=== PATIENT | female | born 1940 | race Caucasian/White ===

== ENCOUNTER 2024-11-01 14:28 | Emergency (ER) | payer MEDICARE, OTHER, SELFPAY ==
[2024-11-01 14:42] VITALS: BP 152/69
[2024-11-01 15:24] VITALS: BMI 24.6
--- NOTE | 2024-11-01 15:28 | ED.MUSCINJ ---
HPI-Injury
General
Chief Complaint: Fall
Source: patient
Exam Limitations: none
Time Seen by Provider: 11/01/24 15:22
History of Present Illness-Injury
Initial Injury comments:
84-year-old female not anticoagulated presents for evaluation of worsening mid to lower back pain after a fall she sustained 3 weeks ago. She bumped her head at the time but there was no loss of consciousness. She denies any headache. She is not
anticoagulated. She notes increased back pain. She has been using Tylenol which helps. She is using warm compresses. No numbness.
Phy Exam
Physical Exam
Physical Exam:
General: Well-appearing female no acute respiratory distress
Musculoskeletal exam: The cervical spine is nontender. She is mildly diffusely tender about the paraspinous area of the thoracic spine and lumbar spine as well as the right ribs
Heart: Regular rate and rhythm
Lungs: Clear no wheeze
Extremities: No cyanosis
Injury Course
Orders/Labs/Results
Orders:
Orders
11/01/24 14:48
CR Chest - 2 Views Urgent
Comment:
Reason For Exam: fall
CR Lumbar Spine Comp Min 4 Vw* Urgent
Comment:
Reason For Exam: faall
11/01/24 15:29
CR Ribs-right 2 Vw No Pa Chest Urgent
Reason For Exam: fall
CR Thoracic Spine 2 Views Urgent
Comment:
Reason For Exam: fall
11/01/24 18:23
Acetaminophen [Tylenol] 650 mg PO NOW STA
MDM/Problems Addressed
Differential Diagnosis Includes:
Fall with back and right rib pain. X-rays pending to evaluate for fracture or pneumothorax. Other items in differential could include contusion versus musculoskeletal strain
*Pulse Oximetry
SaO2: 96
Oxygen Mode of Delivery: Room air
Patient hypoxic: no
*Critical Care Note
Total Time (30-74mins, 75-104mins- exclusive of procedures): Not Applicable
Update Note
Update Note:
X-rays without acute fractures. Personally visualized and reviewed by radiology. Suspect underlying muscular strain. Will prescribe muscle relaxer on top of her Tylenol that she has been taking. Stable for the
ED Attending Note
-
Portions of this chart may have been created with voice recognition software.� Occasional wrong word or��sound alike� substitutions may have occurred due to the inherent limitations of voice recognition software.
Discharge Plan
Departure
Patient Disposition: Home (Routine Discharge)
Date of Disposition: 11/01/24
Time of Disposition: 20:15
Patient with high blood pressure during this ER visit?: No
Discharge Problem:
Back pain
Prescriptions:
New
cyclobenzaprine 5 mg tablet
5 mg PO TID PRN (Reason: spasm) Qty: 10 0RF
No Action
oxycodone-acetaminophen [Percocet] 5-325 mg tablet
1 tab PO Q4HPRN PRN (Reason: pain) Qty: 10 0RF
Referrals:
Damon Jefferson DO [Family Provider, Family Practice]
Activity Restrictions/Additional Instructions:
Continue with Tylenol. You may use muscle relaxer as needed for spasm. Return if worse otherwise follow-up with your doctor
Interventions
Interventions:
*Risk Screen - Suicide Last Done: 11/01/24 14:42
*General Assessment Last Done: 11/01/24 14:42
*Neglect/Abuse Screening Last Done: 11/01/24 14:42
*ED- Fall Risk Assessment Last Done: 11/01/24 15:20
*ED COVID-19 Vaccine History Last Done: 11/01/24 15:24
ED-Musculoskeletal Assessment Last Done: 11/01/24 15:24
ED- Neurological Assessment Last Done: 11/01/24 15:24
ED-Skin Assessment Last Done: 11/01/24 15:24
Discharge Date and Time
Print Language: [id number]
[2024-11-01] MEDS: TYLENOL 650 MG PO (18:44)
== END 2024-11-01 20:29 | disposition home or self-care (01) ==
LOC: EMR 14:28
PROVIDERS: EMERGENCY PHYSICIAN Emergency Medicine; FAMILY PHYSICIAN Family Medicine
DX: M54.9 Dorsalgia, unspecified (principal); W19.XXXA Unspecified fall, initial encounter
CPT/HCPCS: 99284; 71046; 71100; 72070; 72110